=== PATIENT | male | born 1970 | race Hispanic/Latino ===

== ENCOUNTER → 2019-01-11 | Outpatient (CLI) | payer BC ==
[~2019-01-11] MED LIST: COLCRYS0.6 MG; HYDROCODON-ACE1 EAC4; INDOMETHACIN50 MG; IOPAMIDOL 370 MG/ML 200 ML INFUS..BTL INJ ONE; SODIUM CHLORIDE 0.9% 50ML 50 ML ONE
--- NOTE | 2019-01-11 14:14 | Diagnostic Imaging Report ---
EXAMINATION: CT scan of the chest in right upper extremity with contrast. TECHNIQUE: Spiral CT images of the chest were performed from the lung apices to the level of the right hand after the intravenous administration of 100 cc Isovue-370. Coronal and sagittal reformatted images were obtained. Scanning was performed and venous phase COMPARISON: None. CLINICAL HISTORY:Right arm pain and swelling DISCUSSION: Vasculature: Brachial and subclavian veins are limited in evaluation due to timing of scan acquisition. The brachial veins appear diminutive, as does the right axillary and brachial vein. Multiple prominent superficial venous channels are noted on the ventral surface of the forearm, coalescing into what is felt to represent the basilic vein, which terminates abruptly at the level of the upper humeral shaft as seen on series 4 image 116 through 98. Right internal jugular vein is normal in caliber and the right brachiocephalic vein is patent. Superior vena cava is widely patent to its termination in the right atrium. The brachiocephalic artery, right subclavian artery, right axillary artery, right brachial artery, and proximal right radial and ulnar arteries are patent. Ascending thoracic aorta is patent. Limited chest: The right lung is grossly clear with subsegmental atelectasis in the dependent lower lobe. Thyroid gland appears normal. No mediastinal or right axillary lymphadenopathy. Limited abdomen: Visualized portions of the liver and right kidney are unremarkable. Right adrenal gland is normal, without nodule. Gallbladder is unremarkable. Appendix and ascending colon appear normal. Partially visualized abdominal aorta is patent. SMA origin and right renal artery are patent. Urinary bladder is incompletely distended but otherwise unremarkable. Coarse prostatic calcifications. No right inguinal or pelvic sidewall lymphadenopathy. Bones: No osseous destructive lesions. No focal soft tissue abnormalities. No subcutaneous edema or skin thickening of the right upper extremity. IMPRESSION: Right upper extremity venous structures are suboptimally evaluated secondary to contrast timing. Right brachial and axillary venous segments are diminutive, with multiple dilated superficial channels along the forearm, coalescing into the basilic vein, which appears to abruptly terminate at the level of the upper humeral shaft. Findings may represent chronic occlusion due to prior episode of venous thrombosis. Right upper extremity Doppler evaluation would be of benefit to better evaluate patency of the brachial venous structures. No filling defect in the right internal jugular, brachiocephalic vein, or superior vena cava to suggest acute thrombus. Unremarkable right upper extremity arterial structures to the level of the distal radial and ulnar arteries. Signed by: Dr. Catrachito Taveras M.D. on 01/11/2019 2:11 PM
== END ==
LOC: CT 10:44
PROVIDERS: ATTEND Internal Medicine Cardiovascular Disease
DX: M79.89 Other specified soft tissue disorders (principal)
CPT/HCPCS: 73206; Q9967

== ENCOUNTER → 2019-02-05 | Day surgery (SDC) | payer BC ==
[2019-02-04 11:41] LABS: BASOPHILS # (AUTO) 0.1 (0.0-0.1); BASOPHILS % 0.5 % (0.0-1.0); EOSINOPHILS # (AUTO) 0.1 (0.0-0.4); EOSINOPHILS % 0.9 % (0.0-6.0); HEMATOCRIT 43.9 % (38.2-49.6); HEMOGLOBIN 15.1 g/dL (14.0-18.0); LYMPHOCYTES # (AUTO) 2.5 (1.0-3.2); LYMPHOCYTES % 24.4 % (18.0-39.1); MEAN CORPUSCULAR HEMOGLOBIN 30.4 pg (28-32); MEAN CORPUSCULAR HGB CONC 34.4 g/dL (31-35); MEAN CORPUSCULAR VOLUME 88.5 fL (81-99); MONOCYTES # (AUTO) 0.8 (0.2-0.8); MONOCYTES % 8.1 % (4.4-11.3); NEUTROPHILS # (AUTO) 6.7 (2.1-6.9); NEUTROPHILS % 65.6 % (38.7-80.0); PLATELET COUNT 364 x10e3/uL (140-360); RED BLOOD COUNT 4.96 x10e6/uL (4.3-5.7); RED CELL DISTRIBUTION WIDTH 12.7 % (11.7-14.4)
[2019-02-04 11:52] LABS: INR 0.86; PROTHROMBIN TIME 12.2 seconds (11.9-14.5)
[2019-02-04 11:53] LABS: PARTIAL THROMBOPLASTIN TIME 32.3 seconds (23.8-35.5)
[2019-02-04 11:59] LABS: ANION GAP 14.1 mmol/L (8-16); BLOOD UREA NITROGEN 12 mg/dL (7-26); BUN/CREATININE RATIO 13 (6-25); CALCIUM 10.8 mg/dL (8.4-10.2); CARBON DIOXIDE 27 mmol/L (22-29); CHLORIDE 103 mmol/L (98-107); CREATININE, SERUM 0.96 mg/dL (0.72-1.25); EST GLOMERULAR FILTRATION RATE > 60 ML/MIN (60-); GLUCOSE 98 mg/dL (74-118); POTASSIUM 4.1 mmol/L (3.5-5.1); SODIUM 140 mmol/L (136-145)
[~2019-02-05] VITALS: Ht 175.3 cm; Wt 111.1 kg
[2019-02-05] VITALS (13 sets, daily range): BP systolic 102–128; BP diastolic 60–87
[~2019-02-05] MED LIST changes: +BACITRACIN 50,000 UNIT VIAL ONE; +FENTANYL CITRATE/PF 100MCG/2 ML INJ ONE; +HEPARIN SOD (PORCINE) 1000 UNIT/ML 30ML ONE; +HEPARIN SOD/SOD CHLORIDE 1,000 ML ONE; +LIDOCAINE HCL 2% LOCAL 20 ML VIAL ONE; +MIDAZOLAM HCL 2 MG/2 ML VIAL ONE; +NAPROXEN500 MG PO; +NITROGLYCERIN/D5W 200 MCG/ML 250 ML ONE; +SODIUM CHLORIDE 0.9% 1000ML 1,000 ML ONE; -SODIUM CHLORIDE 0.9% 50ML 50 ML ONE; +ULORIC80 MG PO
--- OUTSIDE RECORDS SUMMARY | 2019-02-05 06:31 | XMS REPORT ---
[facility] Address Unknown Phone Unavailable Care Team Providers Care Referral And Information Aide Name Role Phone Alfonso ACEVEDO Unavailable Unavailable Problems This patient has no known problems. Allergies, Adverse Reactions, Alerts This patient has no known allergies or adverse reactions. Medications This patient has no known medications. Results Test Description Test Time Test Comments Text Results Atomic Results Result Comments CTA UP EXT W or WOW 2019-01-11 13:57:[address] [address] Patient Name: BUCK BARCLAY MR #: [id number] : 1970 Age/Sex: 48/M Req #: [id number] Adm Physician: Ordered by: FRANCIS ACEVEDO DO Report #: [id number] Location: CT Room/Bed: Procedure: [id number] CT/CTA UP EXT W or WOW Exam Date: 01/11/19 Exam Time: 1240 REPORT STATUS: Signed EXAMINATION: CT scan of the chest in right upper extr emity with contrast. TECHNIQUE: Spiral CT images of the chest were performed from the lung apices to the level of the right hand after the intravenous administration of 100 cc Isovue-370. Coronal and sagittal reformatted images were obtained. Scanning was performed and venous phase COMPARISON: None. CLINICAL HISTORY:Right arm pain and swelling DISCUSSION: Vasculature: Brachial and subclavian veins are limited in evaluation due to timing of scan acquisition. The brachial veins appear diminutive, as does the right axillary and brachial vein. Multiple prominent superficial venous channels are noted on the ventral surface of the forearm, coalescing into what is felt to represent the basilic vein, which terminates abruptly at the level of the upper humeral shaft as seen on series 4 image 116 through 98. Right internal jugular vein is normal in caliber and the right brachiocephalic vein is patent. Superior vena cava is widely patent to its termination in the right atrium. The brachiocephalic artery, right subclavian artery, right axillary artery, right brachial artery, and proximal right radial and ulnar arteries are patent. Ascending thoracic aorta is patent. Limited chest: The right lung is grossly clear with subsegmental atelectasis in the dependent lower lobe. Thyroid gland appears normal. No mediastinal or right axillary lymphadenopathy. Limited abdomen: Visualized portions of the liver and right kidney are unremarkable. Right adrenal gland is normal, without nodule. Gallbladder is unremarkable. Appendix and ascending colon appear normal. Partially visualized abdominal aorta is patent. SMA origin and right renal artery are patent. Urinary bladder is incompletely distended but otherwise unremarkable. Coarse prostatic calcifications. No right inguinal or pelvic sidewall lymphadenopathy. Bones: No osseous destructive lesions. No focal soft tissue abnormalities. No subcutaneous edema or skin thickening of the right upper extremity. IMPRESSION: Right upper extremity venous structures are suboptimally evaluated secondary to contrast timing. Right brachial and axillary venous segments are diminutive, with multiple dilated superficial channels along the forearm, coalescing into the basilic vein, which appears to abruptly terminate at the level of the upper humeral shaft. Findings may represent chronic occlusion due to prior episode of venous thrombosis. Right upper extremity Doppler evaluation would be of benefit to better evaluate patency of the brachial venous structures. No filling defect in the right internal jugular, brachiocephalic vein, or superior vena cava to suggest acute thrombus. Unremarkable right upper extremity arterial structures to the level of the di stal radial and ulnar arteries. Signed by: Dr. Christo Carrasco M.D. on 01/11/2019 2:11 PM Dictated By: CHRISTO CARRASCO MD [id number] Transcribed By: SALVADOR on 01/11/19 1411 COPY TO: FRANCIS ACEVEDO DO
--- OUTSIDE RECORDS SUMMARY | 2019-02-05 06:31 | XMS REPORT | Summary of Care ---
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 Allergies, Adverse Reactions, Alerts Substance Reaction Severity Status NKDA Active Medications No data available for this section Medications Administered During Your Visit No data available for this section Immunizations No data available for this section Social History Social History Type Response Alcohol Use: Current, Frequency: 1-2 times per month Smoking Status Former smoker, Exposure to Tobacco Smoke None, Cigarette Smoking Last 365 Days No, Reg Smoking Cessation Counseling No
--- OUTSIDE RECORDS SUMMARY | 2019-02-05 06:31 | XMS REPORT | Summary of Care ---
Author Organization Unknown Address Unknown Phone Unavailable Encounter [facility] Encntr_alias(FIN) [id number] Date(s): 09/12/14 - 10/11/14 [facility] Discharge Disposition: Home Physician Attending: Jacob Stewart Reason for Visit S/P MANIPULATION KNEE Problem List Condition Effective Dates Status Health [...]
--- OUTSIDE RECORDS SUMMARY | 2019-02-05 06:31 | XMS REPORT | Continuity of Care Document ---
Author Author [facility] Interface Address Unknown Phone Unavailable Problems Problem Status Onset Date Classification Date Reported Comments Source UNK Active 08/25/2014 [facility] 844.2 836.0 717.7 [id number] 298 Active 08/25/2014 [facility] MRSA of abscess<sup>1</sup> Active 11/25/2009 Problem 10/13/2014 1Problem added by Discern Expert. [facility] CHONDROMALACIA Active [facility] CHONDROMALACIA, LATERAL/MEDIAL MENISCUS Active [facility] S/P MANIPULATION KNEE Active [facility] Medications Medication Details Route Status Patient Instructions Ordering Provider Order Date Source Ketorolac 15 mg, Route: IVP, Q6H, Dosing Weight 102.727, kg, Start date: 08/28/14 18:00:00, Duration: 6 doses or times, Stop date: 08/30/14 0:00:00 Inactive 08/29/2014 [facility] Ondansetron 4 mg, Route: IVP, ONCE, Dosing Weight 102.727, kg, PRN Nausea & Vomiting, Start date: 08/28/14 16:16:00 Inactive 08/28/2014 [facility] Metoprolol 1 mg, Route: IVP, Q5Min, Dosing Weight 102.727, kg, PRN Other -See Comment, Start date: 08/28/14 16:16:00, Duration: 5 doses or times, Stop date: Limited # of times Inactive 08/28/2014 [facility] Oxycodone 5 mg, Route: PO, Drug form: TAB, Q4H, Dosing Weight 102.727, kg, PRN Pain Score 4-6, Start date: 08/28/14 16:16:00, Duration: 30 day, Stop date: 09/27/14 16:15:00 Inactive 08/28/2014 [facility] Hydromorphone 0.5 mg, Route: IVP, Q5Min, Dosing Weight 102.727, kg, PRN Pain Score 7-10, Start date: 08/28/14 16:16:00, Duration: 4 doses or times, Stop date: Limited # of times Inactive 08/28/2014 [facility] Naloxone 0.04 mg, Route: IVP, Q2MIN, Dosing Weight 102.727, kg, PRN Narcotic Reversal, Start date: 08/28/14 16:16:00, Duration: 8 doses or times, Stop date: Limited # of times Inactive 08/28/2014 [facility] Morphine 4 mg, Route: IVP, Q5Min, Dosing Weight 102.727, kg, PRN Pain Score 7-10, Start date: 08/28/14 16:16:00, Duration: 3 doses or times, Stop date: Limited # of times Inactive 08/28/2014 [facility] Meperidine 12.5 mg, Route: IVP, Q30Min, Dosing Weight 102.727, kg, PRN Other -See Comment, For shivering, Start date: 08/28/14 16:16:00, Duration: 2 doses or times, Stop date: Limited # of times Inactive 08/28/2014 [facility] Flumazenil 0.2 mg, Route: IVP, PRN, Dosing Weight 102.727, kg, PRN Benzodiazepine Reversal, Initial dose, Start date: 08/28/14 16:16:00, Duration: 30 day, Stop date: 09/27/14 16:15:00 Inactive 08/28/2014 [facility] Phenergan 12.5 mg, Route: IVPB, Q4H, Dosing Weight 99.091, kg, PRN Nausea & Vomiting, Start date: 08/28/14 15:55:00, Duration: 30 day, Stop date: 09/27/14 15:54:00 Inactive 08/28/2014 [facility] Zofran 4 mg, Route: IV, Drug form: INJ, Q4H, Dosing Weight 99.091, kg, PRN Nausea, Start date: 08/28/14 15:55:00, Duration: 30 day, Stop date: 09/27/14 15:54:00 Inactive 08/28/2014 [facility] Morphine 2 mg, Route: IVP, Q3H, Dosing Weight 102.727, kg, PRN Pain Score 1-3, Start date: 08/28/14 15:55:00, Duration: 30 day, Stop date: 09/27/14 15:54:00 Inactive 08/28/2014 [facility] Hydromorphone 0.3 mg, Route: IVP, Q3H, Dosing Weight 102.727, kg, PRN Pain Score 4-6, Start date: 08/28/14 15:55:00, Duration: 30 day, Stop date: 09/27/14 15:54:00 Inactive 08/28/2014 [facility] Tramadol 50 mg, Route: PO, Drug form: TAB, Q6H, Dosing Weight 102.727, kg, PRN Pain Score 1-3, Start date: 08/28/14 15:55:00, Duration: 30 day, Stop date: 09/27/14 15:54:00 Inactive 08/28/2014 [facility] Acetaminophen 325 MG / Hydrocodone Bitartrate 5 MG Oral Tablet Route: PO, Dosing Weight 99.091, kg, Q4H, PRN Pain Score 4-6, Start date: 08/28/14 15:55:00, Duration: 30 day, Stop date: 09/27/14 15:54:00 Inactive 08/28/2014 [facility] Calcium Chloride 0.0014 MEQ/ML / Potassium Chloride 0.004 MEQ/ML / Sodium Chloride 0.103 MEQ/ML / Sodium Lactate 0.028 MEQ/ML Injectable Solution 1,000 mL, Rate: 25 ml/hr, Infuse over: 40 hr, Route: IV, Dosing Weight 99.091 kg, Total Volume: 1,000, Start date: 08/28/14 11:55:00, Duration: 30 day, Stop date: 09/27/14 11:54:00 Inactive 08/28/2014 [facility] Zolpidem tartrate 10 MG Oral Tablet [Ambien] 10 mg=1 tab, PO, Bedtime, for sleep, # 30 tab, 0 Refill(s) Active 08/28/2014 [facility] Diazepam 5 MG Oral Tablet [Valium] 5 mg=1 tab, PO, QID, Spasm, # 30 tab, 0 Refill(s) Active 08/28/2014 [facility] Cephalexin 500 MG Oral Capsule [Keflex] 500 mg=1 cap, PO, QID, # 40 cap, 0 Refill(s) Active 08/28/2014 [facility] Ketorolac 15 mg, Route: IVP, Q6H, Dosing Weight 99.091, kg, Start date: 06/05/14 12:00:00, Duration: 6 doses or times, Stop date: 06/06/14 18:00:00 Inactive 06/05/2014 [facility] Morphine 2 mg, Route: IVP, Q5Min, Dosing Weight 99.091, kg, PRN Pain Score 4-6, Start date: 06/05/14 8:27:00, Duration: 5 doses or times, Stop date: Limited # of times Inactive 06/05/2014 [facility] Fentanyl 50 microgram, Route: IVP, Q5Min, Dosing Weight 99.091, kg, PRN Pain Score 7-10, Start date: 06/05/14 8:27:00, Duration: 2 doses or times, Stop date: Limited # of times Inactive 06/05/2014 [facility] Hydromorphone 0.5 mg, Route: IVP, Q5Min, Dosing Weight 99.091, kg, PRN Pain Score 7-10, Start date: 06/05/14 8:27:00, Duration: 4 doses or times, Stop date: Limited # of times Inactive 06/05/2014 [facility] Oxycodone 10 mg, Route: PO, Drug form: TAB, Q4H, Dosing Weight 99.091, kg, PRN Pain Score 7-10, Start date: 06/05/14 8:27:00, Duration: 30 day, Stop date: 07/05/14 8:26:00 Inactive 06/05/2014 [facility] Oxycodone Hydrochloride 1 MG/ML Oral Solution 5 mg, Route: NG, Drug form: LIQ, Q4H, Dosing Weight 99.091, kg, PRN Pain Score 4-6, Start date: 06/05/14 8:27:00, Duration: 30 day, Stop date: 07/05/14 8:26:00 Inactive 06/05/2014 [facility] Ketorolac 30 mg, Route: IVP, ONCE, Dosing Weight 99.091, kg, Start date: 06/05/14 8:27:00, Duration: 1 doses or times, Stop date: 06/05/14 8:27:00 Inactive 06/05/2014 [facility] Acetaminophen 1,000 mg, Route: IVPB, Drug form: INJ, ONCE, Dosing Weight 99.091, kg, PRN Pain Score 1-3, Start date: 06/05/14 8:27:00, Duration: 1 doses or times, Stop date: Limited # of times Inactive 06/05/2014 [facility] Ondansetron 4 mg, Route: IVP, ONCE, Dosing Weight 99.091, kg, PRN Nausea & Vomiting, Start date: 06/05/14 8:27:00 Inactive 06/05/2014 [facility] Promethazine 6.25 mg, Route: IVPB, ONCE, Dosing Weight 99.091, kg, PRN Nausea & Vomiting, Start date: 06/05/14 8:27:00 Inactive 06/05/2014 [facility] Diphenhydramine 12.5 mg, Route: IVP, Drug form: INJ, Q6H, Dosing Weight 99.091, kg, PRN Itching, Start date: 06/05/14 8:27:00, Duration: 30 day, Stop date: 07/05/14 8:26:00 Inactive 06/05/2014 [facility] Naloxone 0.04 mg, Route: IVP, Q2MIN, Dosing Weight 99.091, kg, PRN Narcotic Reversal, Start date: 06/05/14 8:27:00, Duration: 8 doses or times, Stop date: Limited # of times Inactive 06/05/2014 [facility] Flumazenil 0.2 mg, Route: IVP, PRN, Dosing Weight 99.091, kg, PRN Benzodiazepine Reversal, Initial dose, Start date: 06/05/14 8:27:00, Duration: 30 day, Stop date: 07/05/14 8:26:00 Inactive 06/05/2014 [facility] Meperidine 12.5 mg, Route: IVP, Q30Min, Dosing Weight 99.091, kg, PRN Other -See Comment, For shivering, Start date: 06/05/14 8:27:00, Duration: 2 doses or times, Stop date: Limited # of times Inactive 06/05/2014 [facility] Calcium Chloride 0.0014 MEQ/ML / Potassium Chloride 0.004 MEQ/ML / Sodium Chloride 0.103 MEQ/ML / Sodium Lactate 0.028 MEQ/ML Injectable Solution 1,000 mL, Rate: 125 ml/hr, Infuse over: 8 hr, Route: IV, Dosing Weight 99.091 kg, Total Volume: 1,000, Start date: 06/05/14 8:27:00, Duration: 30 day, Stop date: 07/05/14 8:26:00 Inactive 06/05/2014 [facility] Phenergan 12.5 mg, Route: IVPB, Q4H, Dosing Weight 99.091, kg, PRN Nausea & Vomiting, Start date: 06/05/14 8:22:00, Duration: 30 day, Stop date: 07/05/14 8:21:00 Inactive 06/05/2014 [facility] Zofran 4 mg, Route: IV, Drug form: INJ, Q4H, Dosing Weight 99.091, kg, PRN Nausea, Start date: 06/05/14 8:22:00, Duration: 30 day, Stop date: 07/05/14 8:21:00 Inactive 06/05/2014 [facility] Tramadol 50 mg, Route: PO, Drug form: TAB, Q6H, Dosing Weight 99.091, kg, PRN Pain Score 1-3, Start date: 06/05/14 8:22:00, Duration: 30 day, Stop date: 07/05/14 8:21:00 Inactive 06/05/2014 [facility] Acetaminophen 325 MG / Hydrocodone Bitartrate 5 MG Oral Tablet Route: PO, Dosing Weight 99.091, kg, Q4H, PRN Pain Score 4-6, Start date: 06/05/14 8:22:00, Duration: 30 day, Stop date: 07/05/14 8:21:00 Inactive 06/05/2014 [facility] Hydromorphone 0.3 mg, Route: IVP, Q3H, Dosing Weight 99.091, kg, PRN Pain Score 4-6, Start date: 06/05/14 8:22:00, Duration: 30 day, Stop date: 07/05/14 8:21:00 Inactive 06/05/2014 [facility] Morphine 2 mg, Route: IVP, Q3H, Dosing Weight 99.091, kg, PRN Pain Score 1-3, Start date: 06/05/14 8:22:00, Duration: 30 day, Stop date: 07/05/14 8:21:00 Inactive 06/05/2014 [facility] Ancef 1 gm, Route: IVPB, ONCE, Dosing Weight 99.091, kg, Start date: 06/05/14 6:46:00, Stop date: 06/05/14 6:46:00 Inactive 06/05/2014 [facility] Calcium Chloride 0.0014 MEQ/ML / Potassium Chloride 0.004 MEQ/ML / Sodium Chloride 0.103 MEQ/ML / Sodium Lactate 0.028 MEQ/ML Injectable Solution 1,000 mL, Rate: 25 ml/hr, Infuse over: 40 hr, Route: IV, Dosing Weight 99.091 kg, Total Volume: 1,000, Start date: 06/05/14 6:41:00, Duration: 30 day, Stop date: 07/05/14 6:40:00 Inactive 06/05/2014 [facility] Acetaminophen 325 MG / Hydrocodone Bitartrate 7.5 MG Oral Tablet [Spencer 7.5/325] 1-2 tab, PO, Q4-6H, Pain, # 30 tab, 0 Refill(s) Active 06/05/2014 [facility] Diazepam 5 MG Oral Tablet [Valium] 5 mg=1 tab, PO, QID, Spasm, # 30 tab, 0 Refill(s) Active 06/05/2014 [facility] Zolpidem tartrate 10 MG Oral Tablet [Ambien] 10 mg=1 tab, PO, Bedtime, for sleep, # 30 tab, 0 Refill(s) Active 06/05/2014 [facility] Cephalexin 500 MG Oral Capsule [Keflex] 500 mg=1 cap, PO, QID, # 40 cap, 0 Refill(s) Active 06/05/2014 [facility] [place] 180 vitamins [place] 180 vitamins, PO, Daily, Refill(s) 0 Active 06/03/2014 [facility] Multiple Vitamins oral tablet 1 tab, PO, Daily, # 30 tab, 0 Refill(s) Active 06/03/2014 [facility] Acetaminophen 325 MG / Hydrocodone Bitartrate 7.5 MG Oral Tablet [Spencer 7.5/325] 1-2 tab, PO, Q4-6H, Pain, # 30 tab, 0 Refill(s) Active 06/03/2014 [facility] Allergies, Adverse Reactions, Alerts Substance Category Reaction Severity Reaction type Status Date Reported Comments Source Immunizations Immunization Date Given Site Status Last Updated Comments Source Results Order Name Results Value Reference Range Date Interpretation Comments Source HEMATOLOGY MCH 29.5 pg 27.0 - 31.0 08/28/2014 [facility] HEMATOLOGY MPV 8.4 fL 7.4 - 10.4 08/28/2014 [facility] HEMATOLOGY Platelet 235 K/CMM 133 - 450 08/28/2014 [facility] HEMATOLOGY RDW 14.6 % 11.5 - 14.5 08/28/2014 [facility] MCHC 34.0 g/dL 32.0 - 36.0 08/28/2014 [facility] HEMATOLOGY WBC 9.7 K/CMM 3.7 - 10.4 08/28/2014 [facility] Hgb 14.0 g/dL 14.0 - 18.0 08/28/2014 [facility] RBC 4.74 M/CMM 4.70 - 6.10 08/28/2014 [facility] Hct 41.1 % 42.0 - 54.0 08/28/2014 [facility] MCV 86.6 fL 80.0 - 94.0 08/28/2014 [facility] Basophils # 0.1 K/CMM 0.0 - 0.2 08/28/2014 [facility] HEMATOLOGY Eosinophils 0.3 % 0.0 - 4.0 08/28/2014 [facility] Monocytes 7.1 % 2.0 - 12.0 08/28/2014 [facility] Lymphocytes # 2.6 K/CMM 1.0 - 5.5 08/28/2014 [facility] Basophils 0.6 % 0.0 - 1.0 08/28/2014 [facility] Segs-Bands # 6.3 K/CMM 1.5 - 8.1 08/28/2014 [facility] Monocytes # 0.7 K/CMM 0.0 - 0.8 08/28/2014 [facility] HEMATOLOGY Lymphocytes 27.1 % 20.0 - 40.0 08/28/2014 [facility] HEMATOLOGY Segs 64.9 % 45.0 - 75.0 08/28/2014 [facility] HEMATOLOGY MCHC 33.6 g/dL 32.0 - 36.0 06/03/2014 [facility] HEMATOLOGY RDW 12.9 % 11.5 - 14.5 06/03/2014 [facility] HEMATOLOGY Platelet 257 K/CMM 133 - 450 06/03/2014 [facility] HEMATOLOGY MPV 8.4 fL 7.4 - 10.4 06/03/2014 [facility] HEMATOLOGY Hgb 14.9 g/dL 14.0 - 18.0 06/03/2014 [facility] HEMATOLOGY RBC 4.97 M/CMM 4.70 - 6.10 06/03/2014 [facility] HEMATOLOGY MCH 30.0 pg 27.0 - 31.0 06/03/2014 [facility] HEMATOLOGY MCV 89.3 fL 80.0 - 94.0 06/03/2014 [facility] HEMATOLOGY Hct 44.4 % 42.0 - 54.0 06/03/2014 [facility] HEMATOLOGY WBC 12.5 K/CMM 3.7 - 10.4 06/03/2014 [facility] HEMATOLOGY Segs 64.0 % 45.0 - 75.0 06/03/2014 [facility] HEMATOLOGY Lymphocytes 22.7 % 20.0 - 40.0 06/03/2014 [facility] HEMATOLOGY Eosinophils 0.5 % 0.0 - 4.0 06/03/2014 [facility] HEMATOLOGY Monocytes # 1.5 K/CMM 0.0 - 0.8 06/03/2014 [facility] HEMATOLOGY Basophils 0.6 % 0.0 - 1.0 06/03/2014 [facility] HEMATOLOGY Segs-Bands # 8.0 K/CMM 1.5 - 8.1 06/03/2014 [facility] HEMATOLOGY Lymphocytes # 2.8 K/CMM 1.0 - 5.5 06/03/2014 [facility] HEMATOLOGY Monocytes 12.2 % 2.0 - 12.0 06/03/2014 [facility] HEMATOLOGY Eosinophils # 0.1 K/CMM 0.0 - 0.5 06/03/2014 [facility] HEMATOLOGY Basophils # 0.1 K/CMM 0.0 - 0.2 06/03/2014 [facility] Vital Signs Vital Sign Value Date Comments Source Diastolic (mm Hg) 83 08/28/2014 [facility] Systolic (mm Hg) 129 08/28/2014 [facility] Diastolic (mm Hg) 86 08/28/2014 [facility] Systolic (mm Hg) 134 08/28/2014 [facility] Diastolic (mm Hg) 67 08/28/2014 [facility] Systolic (mm Hg) 107 08/28/2014 [facility] Respitory Rate 14 08/28/2014 [facility] Respitory Rate 11 08/28/2014 [facility] Respitory Rate 12 08/28/2014 [facility] Heart Rate 60 08/28/2014 [facility] Height 177.8 cm 08/28/2014 [facility] BMI Calculated 32.5 08/28/2014 [facility] Weight 102.727 08/28/2014 [facility] Respitory Rate 20 06/05/2014 [facility] Diastolic (mm Hg) 69 06/05/2014 [facility] Systolic (mm Hg) 122 06/05/2014 [facility] Systolic (mm Hg) 121 06/05/2014 [facility] Diastolic (mm Hg) 67 06/05/2014 [facility] Respitory Rate 20 06/05/2014 [facility] Diastolic (mm Hg) 80 06/05/2014 [facility] Systolic (mm Hg) 116 06/05/2014 [facility] Respitory Rate 19 06/05/2014 [facility] Heart Rate 78 06/05/2014 [facility] Temperature Oral (F) 98.9 F 06/03/2014 [facility] Heart Rate 84 06/03/2014 [facility] Height 200.66 cm 06/03/2014 [facility] Weight 99.091 06/03/2014 [facility] BMI Calculated 24.61 06/03/2014 [facility] Encounters Location Location Details Encounter Type Encounter Number Reason For Visit Attending Provider ADM Date DC Date Status Source [facility] [id number] Jacob Stewart 06/05/2014 06/05/2014 [facility] [id number] Jacob Stewart 07/14/2014 08/13/2014 [facility] [id number] Jacob Stewart 08/13/2014 09/12/2014 [facility] [id number] Jacob Stewart 08/28/2014 08/28/2014 [facility] Patients [id number] Jacob Stewart 09/12/2014 10/12/2014 [facility] Procedures Procedure Code Date Perfomer Comments Source Arthroscopy of knee<sup>1</sup> [id number] 1x2 left [facility] Sacral laminectomy and excision of intradural spinal lesion [id number] [facility]
--- OUTSIDE RECORDS SUMMARY | 2019-02-05 06:31 | XMS REPORT | Summary of Care ---
Author Organization Unknown Address Unknown Phone Unavailable Encounter HQ Jarret_gregory(SOFIYA) [id number] Date(s): 06/05/14 - 06/05/14 [facility] [address] [address] Discharge Disposition: Home Physician Attending: Jacob Stewart Physician_Referring: Jacob Stewart Reason for Visit UNK Vital Signs 1 2 3 Most recent to oldest [Reference Range]: 200.66 cm (06/03/14 3:35 PM) Height 98.9 DegF (06/03/14 5:08 PM) Temperature Oral [96.4-99.1 DegF] 122 mmHg (06/05/14 10:15 AM) 121 mmHg (06/05/14 10:00 AM) 116 mmHg (06/05/14 9:45 AM) Systolic Blood Pressure [90-140 mmHg] 69 mmHg (06/05/14 10:15 AM) 67 mmHg (06/05/14 10:00 AM) 80 mmHg (06/05/14 9:45 AM) Diastolic Blood Pressure [60-90 mmHg] 20 BRMIN (06/05/14 10:15 AM) 20 BRMIN (06/05/14 10:00 AM) 19 BRMIN (06/05/14 9:45 AM) Respiratory Rate [14-20 BRMIN] 78 bpm (06/05/14 6:55 AM) 84 bpm (06/03/14 5:08 PM) Peripheral Pulse Rate [60-100 bpm] 99.091 kg (06/03/14 3:35 PM) Weight 24.61 m2 (06/03/14 3:35 PM) Body Mass Index Problem List Condition Effective Dates Status Health Status Informant 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 Allergies, Adverse Reactions, Alerts Substance Reaction Severity Status NKDA Active Medications acetaminophen 1,000 mg, Route: IVPB, Drug form: INJ, ONCE, Dosing Weight 99.091, kg, PRN Pain Score 1-3, Start date: 06/05/14 8:27:00, Duration: 1 doses or times, Stop date: Limited # of times Start Date: 06/05/14 Stop Date: 06/05/14 Status: Discontinued acetaminophen-hydrocodone 325 mg-5 mg oral tablet Route: PO, Dosing Weight 99.091, kg, Q4H, PRN Pain Score 4-6, Start date: 8:22:00, Duration: 30 day, Stop date: 07/05/14 8:21:00 Start Date: 06/05/14 Stop Date: 06/05/14 Status: Discontinued Ambien 10 mg oral tablet 10 mg=1 tab, PO, Bedtime, for sleep, # 30 tab, 0 Refill(s) Start Date: 06/05/14 Status: Ordered Ancef 1 gm, Route: IVPB, ONCE, Dosing Weight 99.091, kg, Start date: 06/05/14 6:46:00, Stop date: 06/05/14 6:46:00 Start Date: 06/05/14 Stop Date: 06/05/14 Status: Discontinued diphenhydrAMINE 12.5 mg, Route: IVP, Drug form: INJ, Q6H, Dosing Weight 99.091, kg, PRN Itching, Start date: 06/05/14 8:27:00, Duration: 30 day, Stop date: 07/05/14 8:26:00 Start Date: 06/05/14 Stop Date: 06/05/14 Status: Discontinued fentaNYL 50 microgram, Route: IVP, Q5Min, Dosing Weight 99.091, kg, PRN Pain Score 7-10, Start date: 06/05/14 8:27:00, Duration: 2 doses or times, Stop date: Limited # o f times Start Date: 06/05/14 Stop Date: 06/05/14 Status: Discontinued fentaNYL 25 microgram, Route: IVP, Q5Min, Dosing Weight 99.091, kg, PRN Pain Score 4-6, S tart date: 06/05/14 8:27:00, Duration: 4 doses or times, Stop date: Limited # of times Start Date: 06/05/14 Stop Date: 06/05/14 Status: Discontinued flumazenil 0.2 mg, Route: IVP, PRN, Dosing Weight 99.091, kg, PRN Benzodiazepine Reversal, Initial dose, Start date: 06/05/14 8:27:00, Duration: 30 day, Stop date: 4 8:26:00 Start Date: 06/05/14 Stop Date: 06/05/14 Status: Discontinued hydromorphone 0.5 mg, Route: IVP, Q5Min, Dosing Weight 99.091, kg, PRN Pain Score 7-10, Start date: 06/05/14 8:27:00, Duration: 4 doses or times, Stop date: Limited # of time s Start Date: 06/05/14 Stop Date: 06/05/14 Status: Discontinued hydromorphone 0.3 mg, Route: IVP, Q3H, Dosing Weight 99.091, kg, PRN Pain Score 4-6, Start pastora e: 06/05/14 8:22:00, Duration: 30 day, Stop date: 07/05/14 8:21:00 Start Date: 06/05/14 Stop Date: 06/05/14 Status: Discontinued Keflex 500 mg oral capsule 500 mg=1 cap, PO, QID, # 40 cap, 0 Refill(s) Start Date: 06/05/14 Stop Date: 06/15/14 Status: Ordered ketorolac 30 mg, Route: IVP, ONCE, Dosing Weight 99.091, kg, Start date: 06/05/14 8:27:00, Duration: 1 doses or times, Stop date: 06/05/14 8:27:00 Start Date: 06/05/14 Stop Date: 06/05/14 Status: Discontinued ketorolac 15 mg, Route: IVP, Q6H, Dosing Weight 99.091, kg, Start date: 06/05/14 12:00:00, Duration: 6 doses or times, Stop date: 06/06/14 18:00:00 Start Date: 06/05/14 Stop Date: 06/05/14 Status: Discontinued Lactated Ringers Injection IV 1000 mL 1,000 mL, Rate: 125 ml/hr, Infuse over: 8 hr, Route: IV, Dosing Weight 99.091 kg , Total Volume: 1,000, Start date: 06/05/14 8:27:00, Duration: 30 day, Stop date : 07/05/14 8:26:00 Start Date: 06/05/14 Stop Date: 06/05/14 Status: Discontinued Lactated Ringers Injection IV 1000 mL 1,000 mL, Rate: 25 ml/hr, Infuse over: 40 hr, Route: IV, Dosing Weight 99.091 kg , Total Volume: 1,000, Start date: 06/05/14 6:41:00, Duration: 30 day, Stop date : 07/05/14 6:40:00 Start Date: 06/05/14 Stop Date: 06/05/14 Status: Discontinued meperidine 12.5 mg, Route: IVP, Q30Min, Dosing Weight 99.091, kg, PRN Other -See Comment, F or shivering, Start date: 06/05/14 8:27:00, Duration: 2 doses or times, Stop pastora e: Limited # of times Start Date: 06/05/14 Stop Date: 06/05/14 Status: Discontinued morphine Sulfate 2 mg, Route: IVP, Q5Min, Dosing Weight 99.091, kg, PRN Pain Score 4-6, Start pastora e: 06/05/14 8:27:00, Duration: 5 doses or times, Stop date: Limited # of times Start Date: 06/05/14 Stop Date: 06/05/14 Status: Discontinued morphine Sulfate 4 mg, Route: IVP, Q5Min, Dosing Weight 99.091, kg, PRN Pain Score 7-10, Start da te: 06/05/14 8:27:00, Duration: 3 doses or times, Stop date: Limited # of times Start Date: 06/05/14 Stop Date: 06/05/14 Status: Discontinued morphine Sulfate 2 mg, Route: IVP, Q3H, Dosing Weight 99.091, kg, PRN Pain Score 1-3, Start date: 06/05/14 8:22:00, Duration: 30 day, Stop date: 07/05/14 8:21:00 Start Date: 06/05/14 Stop Date: 06/05/14 Status: Discontinued Multiple Vitamins oral tablet 1 tab, PO, Daily, # 30 tab, 0 Refill(s) Start Date: 06/03/14 Status: Ordered naloxone 0.04 mg, Route: IVP, Q2MIN, Dosing Weight 99.091, kg, PRN Narcotic Reversal, Sta rt date: 06/05/14 8:27:00, Duration: 8 doses or times, Stop date: Limited # of t imes Start Date: 06/05/14 Stop Date: 06/05/14 Status: Discontinued Hunt 7.5/325 oral tablet 1-2 tab, PO, Q4-6H, Pain, # 30 tab, 0 Refill(s) Start Date: 06/03/14 Stop Date: 06/08/14 Status: Ordered Hunt 7.5/325 oral tablet 1-2 tab, PO, Q4-6H, Pain, # 30 tab, 0 Refill(s) Start Date: 06/05/14 Stop Date: 06/10/14 Status: Ordered ondansetron 4 mg, Route: IVP, ONCE, Dosing Weight 99.091, kg, PRN Nausea & Vomiting, Start date: 06/05/14 8:27:00 Start Date: 06/05/14 Stop Date: 06/05/14 Status: Completed oxyCODONE 10 mg, Route: PO, Drug form: TAB, Q4H, Dosing Weight 99.091, kg, PRN Pain Score 7-10, Start date: 06/05/14 8:27:00, Duration: 30 day, Stop date: 07/05/14 8:26:0 0 Start Date: 06/05/14 Stop Date: 06/05/14 Status: Discontinued oxyCODONE 5 mg, Route: PO, Drug form: TAB, Q4H, Dosing Weight 99.091, kg, PRN Pain Score 4 -6, Start date: 06/05/14 8:27:00, Duration: 30 day, Stop date: 07/05/14 8:26:00 Start Date: 06/05/14 Stop Date: 06/05/14 Status: Discontinued oxyCODONE 5 mg/5 mL oral solution 5 mg, Route: NG, Drug form: LIQ, Q4H, Dosing Weight 99.091, kg, PRN Pain Score 4 -6, Start date: 06/05/14 8:27:00, Duration: 30 day, Stop date: 07/05/14 8:26:00 Start Date: 06/05/14 Stop Date: 06/05/14 Status: Discontinued oxyCODONE 5 mg/5 mL oral solution 10 mg, Route: NG, Drug form: LIQ, Q4H, Dosing Weight 99.091, kg, PRN Pain Score 7-10, Start date: 06/05/14 8:27:00, Duration: 30 day, Stop date: 07/05/14 8:26:0 0 Start Date: 06/05/14 Stop Date: 06/05/14 Status: Discontinued Phenergan 12.5 mg, Route: IVPB, Q4H, Dosing Weight 99.091, kg, PRN Nausea & Vomiting, Start date: 06/05/14 8:22:00, Duration: 30 day, Stop date: 07/05/14 8:21:00 Start Date: 06/05/14 Stop Date: 06/05/14 Status: Discontinued promethazine 6.25 mg, Route: IVPB, ONCE, Dosing Weight 99.091, kg, PRN Nausea & Vomiting, Start date: 06/05/14 8:27:00 Start Date: 06/05/14 Stop Date: 06/05/14 Status: Discontinued tramadol 50 mg, Route: PO, Drug form: TAB, Q6H, Dosing Weight 99.091, kg, PRN Pain Score 1-3, Start date: 06/05/14 8:22:00, Duration: 30 day, Stop date: 07/05/14 8:21:00 Start Date: 06/05/14 Stop Date: 06/05/14 Status: Discontinued [place] 180 vitamins [place] 180 vitamins, PO, Daily, Refill(s) 0 Start Date: 06/03/14 Status: Ordered Valium 5 mg oral tablet 5 mg=1 tab, PO, QID, Spasm, # 30 tab, 0 Refill(s) Start Date: 06/05/14 Status: Ordered Zofran 4 mg, Route: IV, Drug form: INJ, Q4H, Dosing Weight 99.091, kg, PRN Nausea, Star t date: 06/05/14 8:22:00, Duration: 30 day, Stop date: 07/05/14 8:21:00 Start Date: 06/05/14 Stop Date: 06/05/14 Status: Discontinued Results HEMATOLOGY Most recent to 1 oldest [Reference Range]: WBC [3.7-10.4 K/CMM] 12.5 K/CMM *HI* (06/03/14 4:15 PM) RBC [4.70-6.10 4.97 M/CMM M/CMM] (06/03/14 4:15 PM) Hgb [14.0-18.0 g/dL] 14.9 g/dL (06/03/14 4:15 PM) Hct [42.0-54.0 %] 44.4 % (06/03/14 4:15 PM) MCV [80.0-94.0 fL] 89.3 fL (06/03/14 4:15 PM) MCH [27.0-31.0 pg] 30.0 pg (06/03/14 4:15 PM) MCHC [32.0-36.0 33.6 g/dL g/dL] (06/03/14 4:15 PM) RDW [11.5-14.5 %] 12.9 % (06/03/14 4:15 PM) Platelet [133-450 257 K/CMM K/CMM] (06/03/14 4:15 PM) MPV [7.4-10.4 fL] 8.4 fL (06/03/14 4:15 PM) Segs [45.0-75.0 %] 64.0 % (06/03/14 4:15 PM) Lymphocytes 22.7 % [20.0-40.0 %] (06/03/14 4:15 PM) Monocytes [2.0-12.0 12.2 % %] *HI* (06/03/14 4:15 PM) Eosinophils [0.0-4.0 0.5 % %] (06/03/14 4:15 PM) Basophils [0.0-1.0 0.6 % %] (06/03/14 4:15 PM) Segs-Bands # 8.0 K/CMM [1.5-8.1 K/CMM] (06/03/14 4:15 PM) Lymphocytes # 2.8 K/CMM [1.0-5.5 K/CMM] (06/03/14 4:15 PM) Monocytes # [0.0-0.8 1.5 K/CMM K/CMM] *HI* (06/03/14 4:15 PM) Eosinophils # 0.1 K/CMM [0.0-0.5 K/CMM] (06/03/14 4:15 PM) Basophils # [0.0-0.2 0.1 K/CMM K/CMM] (06/03/14 4:15 PM) Medications Administered During Your Visit No data available for this section Immunizations No data available for this section Procedures Procedure Type Body Site Date of Procedure Related Diagnosis Arthroscopy of knee1 Sacral laminectomy and excision of intradural spinal lesion 1x2 left Social History Social History Type Response Alcohol Use: Current, Frequency: 1-2 times per month Smoking Status Former smoker, Exposure to Tobacco Smoke None, Cigarette Smoking Last 365 Days No, Reg Smoking Cessation Counseling No
--- OUTSIDE RECORDS SUMMARY | 2019-02-05 06:31 | XMS REPORT | Summary of Care ---
Author Organization Unknown Address Unknown Phone Unavailable Encounter HQ Encntr_alielise(FIN) [id number] Date(s): 07/14/14 - 08/12/14 [facility] Discharge Disposition: Home Physician Attending: Jacob Stewart Reason for Visit CHONDROMALACIA, LATERAL/MEDIAL MENISCUS TEAR Problem List Condition Effective Dates Status Health [...]
--- OUTSIDE RECORDS SUMMARY | 2019-02-05 06:31 | XMS REPORT | Summary of Care ---
Author Organization Unknown Address Unknown Phone Unavailable Encounter HQ Jarret_gregory(SOFIYA) [id number] Date(s): 08/28/14 - 08/28/14 [facility] [address] [address] Discharge Disposition: Home Physician Attending: Jacob Stewart Physician_Referring: Jacob Stewart Reason for Visit 844.2 836.0 717.7 [id number] Vital Signs 1 2 3 Most recent to oldest [Reference Range]: 177.8 cm (08/28/14 11:56 AM) Height 129 mmHg (08/28/14 4:40 PM) 134 mmHg (08/28/14 4:25 PM) 107 mmHg (08/28/14 4:10 PM) Systolic Blood Pressure [90-140 mmHg] 83 mmHg (08/28/14 4:40 PM) 86 mmHg (08/28/14 4:25 PM) 67 mmHg (08/28/14 4:10 PM) Diastolic Blood Pressure [60-90 mmHg] 14 BRMIN (08/28/14 4:00 PM) 11 BRMIN *LOW* (08/28/14 3:45 PM) 12 BRMIN *LOW* (08/28/14 3:30 PM) Respiratory Rate [14-20 BRMIN] 60 bpm (08/28/14 3:30 PM) Peripheral Pulse Rate [60-100 bpm] 102.727 kg (08/28/14 11:56 AM) Weight 32.5 m2 (08/28/14 11:56 AM) Body Mass Index Problem List Condition Effective Dates Status Health Status Informant 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 Allergies, Adverse Reactions, Alerts Substance Reaction Severity Status NKDA Active Medications acetaminophen-hydrocodone 325 mg-5 mg oral tablet Route: PO, Dosing Weight 99.091, kg, Q4H, PRN Pain Score 4-6, Start date: 15:55:00, Duration: 30 day, Stop date: 09/27/14 15:54:00 Start Date: 08/28/14 Stop Date: 08/28/14 Status: Discontinued Ambien 10 mg oral tablet 10 mg=1 tab, PO, Bedtime, for sleep, # 30 tab, 0 Refill(s) Start Date: 08/28/14 Status: Ordered flumazenil 0.2 mg, Route: IVP, PRN, Dosing Weight 102.727, kg, PRN Benzodiazepine Reversal, Initial dose, Start date: 08/28/14 16:16:00, Duration: 30 day, Stop date: 09/27 16:15:00 Start Date: 08/28/14 Stop Date: 08/28/14 Status: Discontinued hydromorphone 0.3 mg, Route: IVP, Q3H, Dosing Weight 102.727, kg, PRN Pain Score 4-6, Start da te: 08/28/14 15:55:00, Duration: 30 day, Stop date: 09/27/14 15:54:00 Start Date: 08/28/14 Stop Date: 08/28/14 Status: Discontinued hydromorphone 0.5 mg, Route: IVP, Q5Min, Dosing Weight 102.727, kg, PRN Pain Score 7-10, Start date: 08/28/14 16:16:00, Duration: 4 doses or times, Stop date: Limited # of ti mes Start Date: 08/28/14 Stop Date: 08/28/14 Status: Discontinued Keflex 500 mg oral capsule 500 mg=1 cap, PO, QID, # 40 cap, 0 Refill(s) Start Date: 08/28/14 Stop Date: 09/07/14 Status: Ordered ketorolac 15 mg, Route: IVP, Q6H, Dosing Weight 102.727, kg, Start date: 08/28/14 18:00:00 , Duration: 6 doses or times, Stop date: 08/30/14 0:00:00 Start Date: 08/28/14 Stop Date: 08/28/14 Status: Discontinued Lactated Ringers Injection IV 1000 mL 1,000 mL, Rate: 25 ml/hr, Infuse over: 40 hr, Route: IV, Dosing Weight 99.091 kg , Total Volume: 1,000, Start date: 08/28/14 11:55:00, Duration: 30 day, Stop pastora e: 09/27/14 11:54:00 Start Date: 08/28/14 Stop Date: 08/28/14 Status: Discontinued meperidine 12.5 mg, Route: IVP, Q30Min, Dosing Weight 102.727, kg, PRN Other -See Comment, For shivering, Start date: 08/28/14 16:16:00, Duration: 2 doses or times, Stop d ate: Limited # of times Start Date: 08/28/14 Stop Date: 08/28/14 Status: Discontinued metoprolol 1 mg, Route: IVP, Q5Min, Dosing Weight 102.727, kg, PRN Other -See Comment, Star t date: 08/28/14 16:16:00, Duration: 5 doses or times, Stop date: Limited # of t imes Start Date: 08/28/14 Stop Date: 08/28/14 Status: Discontinued morphine Sulfate 2 mg, Route: IVP, Q3H, Dosing Weight 102.727, kg, PRN Pain Score 1-3, Start date : 08/28/14 15:55:00, Duration: 30 day, Stop date: 09/27/14 15:54:00 Start Date: 08/28/14 Stop Date: 08/28/14 Status: Discontinued morphine Sulfate 4 mg, Route: IVP, Q5Min, Dosing Weight 102.727, kg, PRN Pain Score 7-10, Start d ate: 08/28/14 16:16:00, Duration: 3 doses or times, Stop date: Limited # of time s Start Date: 08/28/14 Stop Date: 08/28/14 Status: Discontinued naloxone 0.04 mg, Route: IVP, Q2MIN, Dosing Weight 102.727, kg, PRN Narcotic Reversal, St art date: 08/28/14 16:16:00, Duration: 8 doses or times, Stop date: Limited # of times Start Date: 08/28/14 Stop Date: 08/28/14 Status: Discontinued ondansetron 4 mg, Route: IVP, ONCE, Dosing Weight 102.727, kg, PRN Nausea & Vomiting, Start date: 08/28/14 16:16:00 Start Date: 08/28/14 Stop Date: 08/28/14 Status: Discontinued oxyCODONE 5 mg, Route: PO, Drug form: TAB, Q4H, Dosing Weight 102.727, kg, PRN Pain Score 4-6, Start date: 08/28/14 16:16:00, Duration: 30 day, Stop date: 09/27/14 16:15: 00 Start Date: 08/28/14 Stop Date: 08/28/14 Status: Discontinued Phenergan 12.5 mg, Route: IVPB, Q4H, Dosing Weight 99.091, kg, PRN Nausea & Vomiting, Start date: 08/28/14 15:55:00, Duration: 30 day, Stop date: 09/27/14 15:54:00 Start Date: 08/28/14 Stop Date: 08/28/14 Status: Discontinued tramadol 50 mg, Route: PO, Drug form: TAB, Q6H, Dosing Weight 102.727, kg, PRN Pain Score 1-3, Start date: 08/28/14 15:55:00, Duration: 30 day, Stop date: 09/27/14 15:54 :00 Start Date: 08/28/14 Stop Date: 08/28/14 Status: Discontinued Valium 5 mg oral tablet 5 mg=1 tab, PO, QID, Spasm, # 30 tab, 0 Refill(s) Start Date: 08/28/14 Status: Ordered Zofran 4 mg, Route: IV, Drug form: INJ, Q4H, Dosing Weight 99.091, kg, PRN Nausea, Star t date: 08/28/14 15:55:00, Duration: 30 day, Stop date: 09/27/14 15:54:00 Start Date: 08/28/14 Stop Date: 08/28/14 Status: Discontinued Results HEMATOLOGY Most recent to 1 oldest [Reference Range]: WBC [3.7-10.4 K/CMM] 9.7 K/CMM (08/28/14 11:55 AM) RBC [4.70-6.10 4.74 M/CMM M/CMM] (08/28/14 11:55 AM) Hgb [14.0-18.0 g/dL] 14.0 g/dL (08/28/14 11:55 AM) Hct [42.0-54.0 %] 41.1 % *LOW* (08/28/14 11:55 AM) MCV [80.0-94.0 fL] 86.6 fL (08/28/14 11:55 AM) MCH [27.0-31.0 pg] 29.5 pg (08/28/14 11:55 AM) MCHC [32.0-36.0 34.0 g/dL g/dL] (08/28/14 11:55 AM) RDW [11.5-14.5 %] 14.6 % *HI* (08/28/14 11:55 AM) Platelet [133-450 235 K/CMM K/CMM] (08/28/14 11:55 AM) MPV [7.4-10.4 fL] 8.4 fL (08/28/14 11:55 AM) Segs [45.0-75.0 %] 64.9 % (08/28/14 11:55 AM) Lymphocytes 27.1 % [20.0-40.0 %] (08/28/14 11:55 AM) Monocytes [2.0-12.0 7.1 % %] (08/28/14 11:55 AM) Eosinophils [0.0-4.0 0.3 % %] (08/28/14 11:55 AM) Basophils [0.0-1.0 0.6 % %] (08/28/14 11:55 AM) Segs-Bands # 6.3 K/CMM [1.5-8.1 K/CMM] (08/28/14 11:55 AM) Lymphocytes # 2.6 K/CMM [1.0-5.5 K/CMM] (08/28/14 11:55 AM) Monocytes # [0.0-0.8 0.7 K/CMM K/CMM] (08/28/14 11:55 AM) Basophils # [0.0-0.2 0.1 K/CMM K/CMM] (08/28/14 11:55 AM) Medications Administered During Your Visit No data available for this section Immunizations No data available for this section Social History Social History Type Response Alcohol Use: Current, Frequency: 1-2 times per month Smoking Status Former smoker, Exposure to Tobacco Smoke None, Cigarette Smoking Last 365 Days No, Reg Smoking Cessation Counseling No
--- NOTE | 2019-02-05 09:33 | NUR ---
0994 Received pt to rm #9 Identiferx2. Report from Roxanna Finley Rt venous sheath in place to arm last act 282 .Ok to pull at less 180 Act. Resp shallow and regular. 100% sats on room air. Abdomen soft and non tender Denies necessity to defecate or urinate. Bilateral PPx4 Pd/DP. left iv 1liter infused NO s/s infiltration. Rt arm sheath site w/o gross issues pain ,pallor,pressure or dysrhythmia. 1030 ACT 210 prasanna one hour. 1130 ACT 172 reported to pet technologist 2 ready for pull. Family discharge papers reviewed aware of importance of f/o care and has copies of dc plans. Voided and tolerated intake well. 1215 [address] RTR pet technologist at bedside pulled sheath held 10mins NO gross sign pain,pallor.pressure or dysrhythmia. Dressed ready for dc Has copies of dc papers Rt brachial dressing dry and intact radial and ulner pusles adequate escorted to car per w/c no c/o Denies Cp or SOB ds/rn
--- NOTE | 2019-02-05 12:30 | NUR ---
1230 dressed and ready for DC Pt has copies of dc POC and knows importance of f/o. Rt brachial site w/o s/s of bleeding,edema or pallor. Adequate radial and ulnar/brachial pulse. 2x2 dressing with Tegaderm D/I. Iv removed and pt dc with team cdl driver per W/c. Back to baseline orientation. Tolerating po intake and voiding w/o difficulty. Denies CO of CP or SOB ds/rn
--- NOTE | 2019-02-26 17:39 | Operative Report ---
DATE OF PROCEDURE: 02/05/2019 SURGEON: Donny Miramontes DO PROCEDURES PERFORMED: 1. Conscious sedation, 30 minutes. 2. Selective upper extremity venography x1. 3. Second order peripheral venography x1. 4. Percutaneous transluminal venoplasty of the right axillary vein. PREPROCEDURE DIAGNOSIS: Upper extremity swelling with significant collaterals and superficial venous insufficiency. 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 PROCEDURE DETAILS: After informed consent was obtained, the patient was brought to the cardiac catheterization laboratory in a fasting and nonsedated state. His right upper extremity was prepped and draped in usual sterile fashion. The nursing staff gained access into his basilic vein. Next, I exchanged this out for a 7-Chinese sheath. Venography confirmed significant stenosis throughout the axillary and subclavian areas. Next, I performed balloon venoplasty with a 12 x 40 Ultraverse balloon with excellent results. The patient received intravenous nitroglycerin as well, which restored better flow. The patient tolerated the procedure well with no immediate complications, transferred back to his room in stable condition. DO AMANDO Ruth/MODL /[id number]
== END | disposition home or self-care (01) ==
LOC: CATH LAB 06:23 → EDSTATUS 08:00
PROVIDERS: ATTEND Internal Medicine Cardiovascular Disease
DX: I87.1 Compression of vein (principal); R60.9 Edema, unspecified; Z01.812 Encounter for preprocedural laboratory examination
CPT/HCPCS: 36012; 36415; 37248; 75820; 80048; 85025; 85610; 85730; C1725; C1766; C1769; C1894; J1644; J2001; J2250; J7030; Q9967; 36011